=== PATIENT | male | born 1955 | race Caucasian/White ===

== ENCOUNTER 2017-06-26 13:41 | Emergency (ER) | payer MEDICARE ==
[~2017-06-26] VITALS: Ht 185.4 cm; Wt 65.0 kg
[2017-06-26] MEDS ORDERED: PREDNISONE50 MG PO (15:20)
[2017-06-26] MEDS ORDERED: TRAMADOL HYDROC50 MG PO (15:20)
[2017-06-26 15:32] VITALS: BP 120/49
== END 2017-06-26 15:32 | disposition home or self-care (01) ==
LOC: ED 13:41
DX: M54.5 Low back pain (principal); M25.552 Pain in left hip; W01.0XXA Fall on same level from slipping, tripping and stumbling without subsequent striking against object, initial encounter; Y93.89 Activity, other specified; Y92.007 Garden or yard of unspecified non-institutional (private) residence as the place of occurrence of the external cause

== ENCOUNTER → 2019-05-01 | Day surgery (SDC) | payer MEDICARE ==
[~2019-05-01] VITALS: Ht 185.4 cm; Wt 68.0 kg
[~2019-05-01] MED LIST: ALPRAZOLAM1 MG PO; ESCITALOPRAM OX10 MG PO; PREDNISONE50 MG PO; TAMSULOSIN0.4 MG PO; TRAMADOL HYDROC50 MG PO; WELLBUTRIN SR150 MG PO
[2019-05-01 12:25] VITALS: BP 94/50
== END | disposition home or self-care (01) ==
LOC: ENDO 09:00 → ORM 09:45 → ENDO 11:30
PROVIDERS: ATTEND Surgery
PROC: 0DBL8ZX Excision of Transverse Colon, Via Natural or Artificial Opening Endoscopic, Diagnostic (ICD-10-PCS; principal; 2019-05-01)
PROC: 3E0H8GC Introduction of Other Therapeutic Substance into Lower GI, Via Natural or Artificial Opening Endoscopic (ICD-10-PCS; 2019-05-01)
DX: D12.5 Benign neoplasm of sigmoid colon (principal); K63.5 Polyp of colon; J44.9 Chronic obstructive pulmonary disease, unspecified

== ENCOUNTER 2020-12-07 18:44 | Emergency (ER) | payer MEDICARE ==
[~2020-12-07] VITALS: Ht 185.4 cm; Wt 68.0 kg
[~2020-12-07 18:44] MED LIST changes: +CEPHALEXIN500 M1 PO; +HYDROCO/APAP1 TA9 PO; +ONDANSETRON4 MG PO
[2020-12-07] MEDS ORDERED: AMOXICILLIN500 MG PO (18:57)
[2020-12-07] MEDS ORDERED: CYCLOBENZAPRINE10 MG PO (19:39)
[2020-12-07] MEDS ORDERED: ULTRAM50 M1 PO (19:39)
[2020-12-07 19:55] VITALS: BP 128/90
== END 2020-12-07 19:56 | disposition home or self-care (01) ==
LOC: ED 18:44
DX: S43.402A Unspecified sprain of left shoulder joint, initial encounter (principal); J44.9 Chronic obstructive pulmonary disease, unspecified; F41.9 Anxiety disorder, unspecified; F32.9 Major depressive disorder, single episode, unspecified; W11.XXXA Fall on and from ladder, initial encounter; Y93.89 Activity, other specified; Y92.009 Unspecified place in unspecified non-institutional (private) residence as the place of occurrence of the external cause

== ENCOUNTER 2021-02-28 15:22 | Emergency (ER) | payer MEDICARE ==
[~2021-02-28] VITALS: Ht 185.4 cm; Wt 68.0 kg
[~2021-02-28 15:22] MED LIST changes: +AMOXICILLIN500 MG PO; +CYCLOBENZAPRINE10 MG PO; +ULTRAM50 M1 PO; +WELLBUTRIN SR100 MG PO; -WELLBUTRIN SR150 MG PO
[2021-02-28] MEDS ORDERED: KEFLEX500 MG PO (16:11)
[2021-02-28] MEDS ORDERED: BACTROBAN TOP (16:11)
[2021-02-28 16:15] VITALS: BP 122/40
== END 2021-02-28 16:21 | disposition home or self-care (01) ==
LOC: ED 15:22
DX: S91.031A Puncture wound without foreign body, right ankle, initial encounter (principal); L08.9 Local infection of the skin and subcutaneous tissue, unspecified; J44.9 Chronic obstructive pulmonary disease, unspecified; F41.9 Anxiety disorder, unspecified; F32.9 Major depressive disorder, single episode, unspecified; W29.8XXA Contact with other powered hand tools and household machinery, initial encounter